=== PATIENT | female | born 1975 | race Caucasian/White ===

== ENCOUNTER 2016-08-11 20:10 | Emergency (ER) | payer BC, OTHER ==
[~2016-08-11] VITALS: Ht 167.6 cm; Wt 85.0 kg
[~2016-08-11 20:10] MED LIST: LISI-515 PO; LORA-474 PO; SIMV40TA PO; WELL200T PO
[2016-08-11 20:12] VITALS: BP 178/90; PULSE 98; RESP 14; TEMP 98.4; O2SAT 100
[2016-08-11] MEDS ORDERED: CYCLOBENZAPRINE HCL 10 MG TAB PO ONE (21:00)
[2016-08-11] MEDS ORDERED: DEXAMETHASONE SOD PHOS 4 MG/ML VIAL IM ONE (21:00)
[2016-08-11] MEDS ORDERED: ACETAMINOPHEN/HYDROcodone 325 MG/5 MG TAB PO ONE (21:00)
--- NOTE | 2016-08-11 21:02 | PD ---
HPI Chief Complaint: Musculoskeletal Complaint Time Seen by Provider: 20:58 Travel History International Travel<30 days: No Contact w/Intl Traveler<30days: No Traveled to known affect area: No History of Present Illness HPI Patient comes in complaining of right shoulder pain ongoing for approximately 2 months. Patient's pain progressively has gotten worse. Patient has pain is sharp burning like in nature and radiates into her back. Pain is worse with certain movement. Patient denies any known injury. 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 Patient states she 's been taking ibuprofen with minimal to no relief of her symptoms. Patient states she has not seen a primary care doctor about this yet secondary to not having insurance currently. Patient states she supposed be on blood pressure medicine however secondary to not having insurance currently she is not taking it. Patient denies any chest pain, shortness breath, headache, numbness or tingling anywhere. PFSH Past Medical History Autoimmune Disease: Yes (LUPUS) Depression: Yes Cardiovascular Problems: Yes (HTN) High Cholesterol: Yes Diminished Hearing: No : 2 Para: 2 Tubal Ligation: Yes Social History Alcohol Use: Yes (SOCIALLY) Tobacco Use: Yes Substance Use: No Allergies-Medications (Allergen,Severity, Reaction): Coded Allergies: Penicillin (Verified Adverse Reaction, Unknown, RASH, 08/11/16) Reported Meds & Prescriptions Reported Meds & Active Scripts Active Flexeril (Cyclobenzaprine HCl) 10 Mg Tab 10 Mg PO Q8HR PRN Prednisone (21) 5 mg tab Dose Pack (Prednisone) 5 Mg Dspk 5 Mg PO DIRECTED Reported Lisinopril 20 Mg Tab 20 Mg PO DAILY Wellbutrin SR 12 HR (Bupropion HCl) 200 Mg Tab 200 Mg PO Q12HR Ativan (Lorazepam) 1 Mg Tab 1 Mg PO DAILY PRN Simvastatin 40 Mg Tab 40 Mg PO HS Review of Systems Except as stated in HPI: all other systems reviewed are Neg Physical Exam Narrative GENERAL: Well-developed, overly nourished, in no acute distress, and non-ill appearing. SKIN: Warm and dry. HEAD: Atraumatic. Normocephalic. EYES: Pupils equal and round. EOMI. No scleral icterus. No injection or drainage. ENT: No nasal bleeding or discharge. Mucous membranes pink and moist. NECK: Trachea midline. Supple. No nuclear rigidity. CARDIOVASCULAR: Radial pulses 2+, intact, and equal bilaterally. Capillary refill less than 2 seconds. RESPIRATORY: No accessory muscle use. No respiratory distress. MUSCULOSKELETAL: No obvious deformities. No clubbing. No cyanosis. No edema. Full range of motion. Shoulder:FROM equal BL with passive flexion, extension, Abduction, Adduction, internal/external rotation, and pronation/supination. Sensation equal BL deltoid muscles. Pulses equal BL distal to injury. Capillary refill less than 2 seconds distal to injury and equal BL. FROM distal to injury and equal BL. Strength distal to injury equal BL. NV intact distal to injury equal BL. Flexion and extension of thumb equal BL. Equal strength and movement with abduction/adductions of BL fingers. [facility] strength equal BL. Patient reports tenderness to palpation or right shoulder. NEUROLOGICAL: Awake and alert. No obvious cranial nerve deficits. Motor grossly within normal limits. Normal speech. PSYCHIATRIC: Appropriate mood and affect; insight and judgment normal. Data Data Last Documented VS Vital Signs Date Time Temp Pulse Resp B/P Pulse Ox O2 Delivery O2 Flow Rate FiO2 08/11/16 20:12 98.4 98 14 178/90 100 Room Air Orders Dexamethasone Inj (Decadron Inj) (08/11/16 21:00) Cyclobenzaprine (Flexeril) (08/11/16 21:00) Acetamin-Hydrocod 325-5 Mg (Deal 5-325 (08/11/16 21:00) MDM Medical Decision Making Medical Screen Exam Complete: Yes Emergency Medical Condition: Yes Differential Diagnosis Fracture, strain, contusion, bursitis, arthritis, other Narrative Course There is no clinical evidence for fracture. There is no clinical evidence to suspect bony injury by exam. No obvious ligamental injury or internal derangement is noted at this time. The distal extremity appears neurovascularly intact, without evidence of neurovascular injury nor compartment syndrome. Tendon exam also was intact. The patient was discharged and given warnings for vascular compromise. The patient is to follow up with Orthopedics. The patient agrees with plan. Patient in no obvious distress upon re-evaluation. Patient was asked if they wanted to speak to my attending, which the patient did not wish to do at this time. Any questions/concerns in reference to patient diagnosis/condition discussed and clarified prior to patient's discharge. Reinforced sheer importance of close follow up with patient's primary physician or primary care clinic. Instructed patient to return to ED immediately, if symptoms return/ worsen. Pt showed understanding of above instructions. Further instructions and recommendations were detailed in discharge paperwork. Pt ambulated without difficulty out of ED at discharge. Diagnosis Primary Impression: Right shoulder pain Qualified Code: M25.511 - Acute pain of right shoulder Additional Impression: Hypertension Qualified Code: I10 - Essential hypertension Referrals: Sergio Stewart MD Patient Instructions: General Instructions, Hypertension (ED), Shoulder Pain ( ED) Additional Instructions: Follow-up with your primary care physician as soon as possible to restart your blood pressure medicine. Follow-up with orthopedics next week for reevaluation of your shoulder. Take all medication as prescribed. Return to the emergency department if symptoms get worse. Med/Other Pt SpecificInfo: Prescription(s) given Scripts Cyclobenzaprine (Flexeril)10 Mg Tab10 Mg PO Q8HR PRN (MUSCLE PAIN) #15 TAB Ref 0 Prov:Frederick Bermudez MD 08/11/16 Prednisone (21) 5 mg tab Dose Pack 5 Mg Dspk5 Mg PO DIRECTED #1 DSPK Ref 0 Prov:Frederick Bermudez MD 08/11/16 Disposition: 01 DISCHARGE HOME Condition: Stable Masoud Redman Aug 11, 2016 21:02
[2016-08-11] MEDS ORDERED: CYCL1TAB29 PO (21:03)
[2016-08-11] MEDS ORDERED: PRED5PAK PO (21:03)
== END 2016-08-11 21:44 | disposition home or self-care (01) ==
LOC: NEPB 20:10
DX: M25.511 Pain in right shoulder (principal); I10 Essential (primary) hypertension; E78.00 Pure hypercholesterolemia, unspecified; Z72.0 Tobacco use
CPT/HCPCS: 96372; 99283; J1100